=== PATIENT | female | born 1940 | race Caucasian/White ===

== ENCOUNTER → 2020-01-06 | Outpatient (CLI) | payer MEDICARE ==
[2020-01-06 16:42] LABS: MCH 29.8 pg (25.0-35.0); MCHC 31.7 g/dL (31.0-37.0); MCV 93.9 fL (80.0-100.0); Mean Platelet Volume 7.9; Platelet Count 255 k/uL (150-450); RBC 4.36 m/uL (3.80-5.40); RDW 13.7 % (11.5-15.5); WBC 9.1 k/uL (3.8-10.6)
[2020-01-06 16:50] LABS: Potassium 4.6 mmol/L (3.5-5.1)
== END | disposition home or self-care (01) ==
LOC: LABPAT 16:09
PROVIDERS: ATTEND Internal Medicine Interventional Cardiology
DX: Z01.818 Encounter for other preprocedural examination (principal); I25.10 Atherosclerotic heart disease of native coronary artery without angina pectoris
CPT/HCPCS: 80051; 82565; 84520; 85027

== ENCOUNTER → 2020-01-09 | Day surgery (SDC) | payer MEDICARE ==
[2020-01-07 15:28] VITALS: BMI 30.8
[~2020-01-09] MED LIST: ALPRAZolam 0.25 MG TAB PO PRN; ALPRAZolam 0.5 MG TAB PO PRN; ASPIRIN 325 MG TAB PO ONE; ATORVASTATIN 80 MG TAB PO ONE; IOPAMIDOL-370 100ML BTL INJ ONE; LIDOCAINE 1% INJ 10MG/ML (20 ML MDV) ONE; LIDOCAINE 1% INJ 10MG/ML (20 ML MDV) SQ ONE; MIDAZOLAM 2 MG/2 ML VIAL IV ONE; NITROGLYCERIN SL TABS 0.4 MG TAB SUBLINGUAL PRN; SODIUM CHLORIDE 0.9% 1,000 ML IV SCH; SODIUM CHLORIDE 0.9% 1,000 ML in EMPTY BAG 1 BAG IV ONE
[2020-01-09 08:39] VITALS: RESP 18; TEMP 98.1
[2020-01-09 08:40] LABS: Glucose,Whole Blood 94 mg/dL (75-99)
--- NOTE | 2020-01-09 10:31 | CC ---
CARDIAC CATHETERIZATION REPORT DATE OF SERVICE: 01/09/2020 PROCEDURE: Left heart catheterization and coronary angiography. PERFORMED BY: Dr. Mariluz Rodriguez. Moderate Conscious sedation time : 22 min. CLINICAL INFORMATION: Mrs. Lucinda Kim is a 79-year-old lady with a history of early dementia, type 2 diabetes, hypertension, hyperlipidemia, and noncritical carotid disease, who had a cardiac cath in 2018, which revealed noncritical CAD. She comes in with symptoms of discomfort in the chest and shortness of breath. In view of her ongoing symptoms, I recommended coronary angiography. I reviewed with her the risks, benefits, options and rationale. PROCEDURE NOTE: Under local anesthesia and strict aseptic precautions, a 6-Icelandic introducer was placed in the right femoral artery. Using a JL3.5 and JR4 catheters, I performed selective coronary angiography and the same right catheter was used to check LV pressure but LV gram was not performed. The sheath was taken out and Angio-Seal device used to secure hemostasis and she was sent to the room in a stable condition. The patient tolerated procedure well without complications. CARDIAC CATHETERIZATION FINDINGS: The left ventricular end-diastolic pressure was about 8-10 mmHg without any gradient across the aortic valve. CORONARY ANGIOGRAPHY FINDINGS: LEFT MAIN CORONARY ARTERY: Short, patent, disease-free vessel that bifurcates into LAD and circumflex. LEFT ANTERIOR DESCENDING CORONARY ARTERY: Good caliber vessel, extends along the anterior wall. In the midportion it gives off a septal branch, then there is a 35% to 40% narrowing after which a diagonal branch comes off and then LAD continues all the way. The distal 1/3 of the LAD has a mild diffuse disease. The diagonal is free of significant disease. Mid LAD has a 35% to 40% lesion unchanged from before. The LAD is relatively small caliber, small distribution vessel. LEFT POSTERIOR CIRCUMFLEX CORONARY ARTERY: This is a nondominant vessel but large in caliber and distribution. gives off 2 large obtuse marginal branches and then runs in the AV groove, supplies a sizable amount of myocardium. No significant disease. RIGHT CORONARY ARTERY: Large codominant vessel. Minor irregularities. No significant disease distally bifurcates into PDA and PLV, which are also free of significant disease. FINAL IMPRESSION: This patient has a 35% to 40% mid LAD disease unchanged from before. The distal 1/3 of the LAD has mild diffuse disease. RCA is dominant, disease-free and circumflex has no significant disease. No gradient across the aortic valve and filling pressures are normal. RECOMMENDATION: I am recommending continued medical therapy with risk factor modification. No intervention is necessary at this time. Findings were discussed with the patient and her . I will do an echocardiogram on her prior to discharge today. Discussed my thoughts in detail with the patient and I expect that she will be discharged later on today. I will see her in the office in about 1 week. MMVALENTINOL / ABIMBOLAN: [id number] / FRANCO
[2020-01-09 15:48] VITALS: PULSE 66
[2020-01-09 15:49] VITALS: BP 134/64
--- NOTE | 2020-01-10 19:18 | ECHOF ---
Referral Reason:evaluate LV function MEASUREMENTS -------- HEIGHT: 152.4 cm WEIGHT: 70.8 kg BP: 113/57 IVSd: 1.0 cm (0.6 - 1.1) LVIDd: 3.3 cm (3.9 - 5.3) LVPWd: 1.2 cm (0.6 - 1.1) EDV(Teich): 43 ml IVSs: 1.6 cm LVIDs: 2.0 cm LVPWs: 1.7 cm %IVS Thck: 62 % ESV(Teich): 12 ml EF(Teich): 71 % %FS: 39 % SV(Teich): 31 ml LA Diam: 3.0 cm (2.7 - 3.8) RVIDd: 3.7 cm (< 3.3) LALs A4C: 5.0 cm LAAs A4C: 16.5 cm LAESV A-L A4C: 47 ml LAESV MOD A4C: 44 ml Ao Diam: 2.6 cm (2.0 - 3.7) AV Cusp: 1.2 cm (1.5 - 2.6) EPSS: 0.3 cm MV E Vinay: 0.81 m/s MV DecT: 224 ms MV Dec Radford: 3.6 m/s MV A Vinay: 1.19 m/s MV E/A Ratio: 0.68 MV PHT: 65 ms LVOT Vmax: 1.15 m/s LVOT maxP.25 mmHg AV Vmax: 2.34 m/s AV maxP.99 mmHg AV Vmax: 2.43 m/s AV Vmean: 1.83 m/s AV maxP.71 mmHg AV meanP.41 mmHg AV Env.Ti: 331 ms AV VTI: 60.7 cm TR Vmax: 2.89 m/s TR maxP.36 mmHg RAP: 5.00 mmHg RVSP: 38.36 mmHg MV EF SLOPE: 22.24 mm/s (70 - 150) MV EXCURSION: 10.59 mm (> 18.000) FINDINGS -------- Sinus rhythm. This was a technically good study. The left ventricular size is normal. There is borderline concentric left ventricular hypertrophy. Overall left ventricular systolic function is normal with, an EF between 60 - 65 %. The right ventricle is mildly enlarged. The left atrial size is normal. The right atrium is normal in size. Interatrial and interventricular septum intact. There is mild aortic valve sclerosis. Trace to mild aortic regurgitation. There is mild aortic st enosis present. Peak/mean gradient across the Aortic Valve is 23.71mmHg / 14.41mmHg. Mild mitral regurgitation is present. Mild tricuspid regurgitation present. There is mild pulmonary hypertension. The right ventricular systolic pressure, as measured by Doppler, is 38.36mmHg. Trace/mild (physiologic) pulmonic regurgitation. The aortic root size is normal. Normal inferior vena cava with normal inspiratory collapse consistent with estimated right atrial pre ssure of 5 mmHg. There is no pericardial effusion. CONCLUSIONS -------- 1. The left ventricular size is normal. 2. There is borderline concentric left ventricular hypertrophy. 3. Overall left ventricular systolic function is normal with, an EF between 60 - 65 %. 4. The right ventricle is mildly enlarged. 5. There is mild aortic valve sclerosis. 6. Trace to mild aortic regurgitation. 7. There is mild aortic stenosis present. 8. Peak/mean gradient across the Aortic Valve is 23.71mmHg / 14.41mmHg. 9. Mild mitral regurgitation is present. 10. Mild tricuspid regurgitation present. 11. There is mild pulmonary hypertension. 12. The right ventricular systolic pressure, as measured by Doppler, is 38.36mmHg. 13. Trace/mild (physiologic) pulmonic regurgitation. 14. There is no pericardial effusion. OUTPATIENT FACILITY PHYSICAL THERAPIST: BRANDO Alexandre
== END ==
LOC: CATHCVL 07:59
PROVIDERS: ATTEND Internal Medicine Interventional Cardiology
DX: I25.110 Atherosclerotic heart disease of native coronary artery with unstable angina pectoris (principal); I08.3 Combined rheumatic disorders of mitral, aortic and tricuspid valves; I27.20 Pulmonary hypertension, unspecified; I10 Essential (primary) hypertension; I65.23 Occlusion and stenosis of bilateral carotid arteries; E78.00 Pure hypercholesterolemia, unspecified; F03.90 Unspecified dementia, unspecified severity, without behavioral disturbance, psychotic disturbance, mood disturbance, and anxiety; E11.9 Type 2 diabetes mellitus without complications; E78.5 Hyperlipidemia, unspecified; Z79.82 Long term (current) use of aspirin; Z79.899 Other long term (current) drug therapy; Z88.1 Allergy status to other antibiotic agents; Z91.011 Allergy to milk products; Z82.49 Family history of ischemic heart disease and other diseases of the circulatory system
CPT/HCPCS: 93306; 93458; C1769 ×3; C1760; C1894; J2250; J2001; Q9967

== ENCOUNTER → 2020-03-18 | Outpatient (CLI) | payer MEDICARE ==
--- NOTE | 2020-03-18 13:00 | MR ---
EXAMINATION TYPE: MR brain wo con DATE OF EXAM: 03/18/2020 12:35 PM COMPARISON: NONE HISTORY: Memory loss, seizure hx, CVA FINDINGS: The ventricles, basal cisterns and sulci overlying the cerebral convexities are moderately enlarged. There is evidence of mild periventricular white matter ischemic demyelination. Remote deep white matter insults are also noted. No acute edema is seen on diffusion weighted imaging. There is no evidence for midline shift or mass effect. Acute intracranial hemorrhage or extra-axial collection is not evident. The paranasal sinuses and mastoid air cells are well-aerated. IMPRESSION: Age-related atrophic and chronic small vessel ischemic change. No acute intracranial process at this time.
== END | disposition home or self-care (01) ==
LOC: RADMRIMAIN 11:40
PROVIDERS: ATTEND Psychiatry & Neurology Neurology
DX: G31.1 Senile degeneration of brain, not elsewhere classified (principal); I67.82 Cerebral ischemia
CPT/HCPCS: 70551

== ENCOUNTER 2022-07-05 14:24 | Observation (INO) | payer MEDICARE ==
[2022-07-05] MEDS ORDERED: IPRATROPIUM-ALBUTEROL 3 ML NEB INHALATION STA (15:13)
--- NOTE | 2022-07-05 15:15 | ED ---
General Adult HPI - General Chief complaint: Shortness of Breath Stated complaint: Cough and dyspnea Time Seen by Provider: 07/05/22 14:51 Source: patient, family, RN/MD (I did speak with Dr. Christie prior to patient arrival), RN notes reviewed Mode of arrival: wheelchair Limitations: no limitations - History of Present Illness Initial comments: Patient is a pleasant 81-year-old female presenting to the emergency Department with cough. Symptoms have been present for close to 2 weeks now. Cough has been nonproductive however patient does have chest congestion. Patient did have fever a few days ago. Patient does have somewhat short of breath and some tightness in her central chest. Patient has seen her doctor and follow-up again today with ER visit recommendation. Patient states her legs are slightly swollen today. No calf pain. Patient believes her legs are swollen from sitting up in the chair all night. - Related Data Home Medications Medication Instructions Recorded Confirmed Aspirin [Adult Low Dose Aspirin EC] 81 mg PO HS 01/07/20 09/06/21 Atorvastatin Calcium [Lipitor] 20 mg PO HS 01/07/20 09/06/21 Isosorbide Mononitrate ER [Imdur] 60 mg PO HS 01/07/20 09/06/21 Nitroglycerin Sl Tabs [Nitrostat] 0.4 mg SUBLINGUAL Q5M PRN 01/07/20 09/06/21 atenoloL [Tenormin] 50 mg PO DAILY 01/07/20 09/06/21 metFORMIN HCL [Glucophage] 500 mg PO DAILY 01/07/20 09/06/21 Losartan Potassium 100 mg PO DAILY 09/06/21 09/06/21 Pantoprazole Sodium 20 mg PO DAILY 09/06/21 09/06/21 hydroCHLOROthiazide [Hydrodiuril] 25 mg PO DAILY 09/06/21 09/06/21 Allergies Allergy/AdvReac Type Severity Reaction Status Date / Time adhesive tape Allergy Severe Burning, Verified 07/05/22 18:59 layers of skin peel off. alcohol Allergy Severe Dyspnea Verified 07/05/22 18:59 Review of Systems ROS Statement: Those systems with pertinent positive or pertinent negative responses have been documented in the HPI. ROS Other: All systems not noted in ROS Statement are negative. Constitutional: Reports: fever Eyes: Denies: eye pain ENT: Denies: ear pain Respiratory: Reports: as per HPI, cough, dyspnea Cardiovascular: Reports: as per HPI, chest pain Endocrine: Reports: fatigue Gastrointestinal: Denies: abdominal pain Genitourinary: Denies: dysuria Musculoskeletal: Denies: back pain Skin: Denies: rash Neurological: Denies: weakness Past Medical History Past Medical History: Diabetes Mellitus, Hyperlipidemia, Hypertension History of Any Multi-Drug Resistant Organisms: None Reported Past Surgical History: Appendectomy, Back Surgery, Heart Catheterization Additional Past Surgical History / Comment(s): cataract surgery, Past Anesthesia/Blood Transfusion Reactions: No Reported Reaction Past Psychological History: No Psychological Hx Reported Smoking Status: Never smoker Past Alcohol Use History: None Reported Past Drug Use History: None Reported - Past Family History family Family Medical History: No Reported History General Exam Limitations: no limitations General appearance: alert, in no apparent distress Head exam: Present: normocephalic Eye exam: Present: normal appearance Neck exam: Present: normal inspection Respiratory exam: Present: wheezes, rhonchi Cardiovascular Exam: Present: regular rate, normal rhythm GI/Abdominal exam: Present: soft. Absent: tenderness Extremities exam: Present: pedal edema (+1 bilateral). Absent: calf tenderness Neurological exam: Present: alert Psychiatric exam: Present: normal affect, normal mood Skin exam: Present: normal color Course Vital Signs 07/05/22 07/05/22 14:32 18:55 Temperature 97.6 F Pulse Rate 75 60 Respiratory 18 18 Rate Blood Pressure 166/74 124/80 O2 Sat by Pulse 97 98 Oximetry EKG Findings - EKG Results: EKG: interpreted by ERMYuriy ([facility]), sinus rhythm, normal axis, normal ST/T EKG shows: bradycardia Medical Decision Making - Medical Decision Making Was pt. sent in by a medical professional or institution (, PA, [employer] LEAD PSYCHOLOGIST, urgent care, hospital, or long-term...) When possible be specific @ -Patient was sent from Dr. Christie's office. Did you speak to anyone other than the patient for history (EMS, parent, family, police, friend...)? What history was obtained from this source @ -I did speak with Dr. Christie prior to arrival a patient who provided history as well. Did you review nursing and triage notes (agree or disagree)? Why? @ -I reviewed and agree with nursing and triage notes Were old charts reviewed (outside hosp., previous admission, EMS record, old EKG, old radiological studies, urgent care reports/EKG's, long-term records)? Report findings @ -No old charts were reviewed Differential Diagnosis (chest pain, altered mental status, abdominal pain women, abdominal pain men, vaginal bleeding, weakness, fever, dyspnea, syncope, headache, dizziness, GI bleed, back pain, seizure, CVA, palpatations, mental health)? @ -Differential Dyspnea: Coronary syndrome, arrhythmia, tamponade, asthma, COPD, pulmonary embolism, pneumonia, pneumothorax, pulmonary effusion, anaphylaxis, diabetic ketoacidosis, flailed chest, pulmonary contusion, diaphragmatic rupture, anemia, neuromuscular, this is not meant to be an all-inclusive list. EKG interpreted by me (3pts min.). @ -As above X-rays interpreted by me (1pt min.). @ -Chest x-ray shows fibrotic changes CT interpreted by me (1pt min.). @ -None done U/S interpreted by me (1pt. min.). @ -None done What testing was considered but not performed or refused? (CT, X-rays, U/S, labs)? Why? @ -None What meds were considered but not given or refused? Why? @ -None Did you discuss the management of the patient with other professionals (professionals i.e. , PA, M[employer] LEAD PSYCHOLOGIST, lab, RT, psych nurse, home health care social worker, packing checker, teacher, patrol community service officer, case management assistant)? Give summary @ -Case was earlier discussed with Dr. Christie. Case was later discussed with Dr. Lopez who will admit he does request pulmonary consult. Was smoking cessation discussed for >3mins.? @ -No Was critical care preformed (if so, how long)? @ -No Were there social determinants of health that impacted care today? How? (Homelessness, low income, unemployed, alcoholism, drug addiction, transportation, low edu. Level, literacy, decrease access to med. care, custodial, rehab)? @ -No Was there de-escalation of care discussed even if they declined (Discuss DNR or withdrawal of care, Hospice)? DNR status @ -No What co-morbidities impacted this encounter? (DM, HTN, Smoking, COPD, CAD, Cancer, CVA, ARF, Chemo, Hep., AIDS, mental health diagnosis, sleep apnea, morbid obesity)? @ -None Was patient admitted / discharged? Hospital course, mention meds given and route, prescriptions, significant lab abnormalities, going to OR and other pertinent info. @ -Patient does admit that she has had history of COVID-19 infection and had prolonged cough and problems for months following that. She does question if that could be related to the fibrosis. Patient is updated on results and plan. Undiagnosed new problem with uncertain prognosis? @ -No Drug Therapy requiring intensive monitoring for toxicity (Heparin, Nitro, Insulin, Cardizem)? @ -No Were any procedures done? @ -No Diagnosis/symptom? @ -Acute COPD Acute, or Chronic, or Acute on Chronic? @ -Acute Uncomplicated (without systemic symptoms) or Complicated (systemic symptoms)? @ -default Side effects of treatment? @ -No Exacerbation, Progression, or Severe Exacerbation? @ -No Poses a threat to life or bodily function? How? (Chest pain, [place], ME, pneumonia, PE, COPD, DKA, ARF, appy, cholecystitis, CVA, Diverticulitis, Homicidal, Up icidal, threat to staff... and all critical care pts) @ -No - Lab Data Result diagrams: 07/05/22 15:45 07/05/22 15:45 Lab Results 07/05/22 07/05/22 07/05/22 Range/Units 15:45 15:45 15:45 WBC 8.3 (3.8-10.6) k/uL RBC 4.61 (3.80-5.40) m/uL Hgb 13.6 (11.4-16.0) gm/dL Hct 40.6 (34.0-46.0) % MCV 88.1 (80.0-100.0) fL MCH 29.5 (25.0-35.0) pg MCHC 33.4 (31.0-37.0) g/dL RDW 12.9 (11.5-15.5) % Plt Count 287 (150-450) k/uL MPV 8.0 Neutrophils % 86 % Lymphocytes % 10 % Monocytes % 2 % Eosinophils % 0 % Basophils % 0 % Neutrophils # 7.2 (1.3-7.7) k/uL Lymphocytes # 0.8 L (1.0-4.8) k/uL Monocytes # 0.2 (0-1.0) k/uL Eosinophils # 0.0 (0-0.7) k/uL Basophils # 0.0 (0-0.2) k/uL PT 10.2 (9.0-12.0) sec INR 1.0 (<1.2) APTT 20.9 L (22.0-30.0) sec D-Dimer 0.65 H (<0.60) mg/L FEU Sodium (137-145) mmol/L Potassium (3.5-5.1) mmol/L Chloride (98-107) mmol/L Carbon Dioxide (22-30) mmol/L Anion Gap mmol/L BUN (7-17) mg/dL Creatinine (0.52-1.04) mg/dL Est GFR (CKD-EPI)AfAm (>60 ml/min/1.73 sqM) Est GFR (CKD-EPI)NonAf (>60 ml/min/1.73 sqM) Glucose (74-99) mg/dL Plasma Lactic Acid Damon (0.7-2.0) mmol/L Calcium (8.4-10.2) mg/dL Total Bilirubin (0.2-1.3) mg/dL AST (14-36) U/L ALT (4-34) U/L Alkaline Phosphatase (38-126) U/L Troponin I (0.000-0.034) ng/mL NT-Pro-B Natriuret Pep pg/mL Total Protein (6.3-8.2) g/dL Albumin (3.5-5.0) g/dL Influenza Type A (PCR) Not Detected (Not Detectd) Influenza Type B (PCR) Not Detected (Not Detectd) RSV (PCR) Not Detected (Not Detectd) SARS-CoV-2 (PCR) Not Detected (Not Detectd) 07/05/22 07/05/22 07/05/22 Range/Units 15:45 15:45 15:45 WBC (3.8-10.6) k/uL RBC (3.80-5.40) m/uL Hgb (11.4-16.0) gm/dL Hct (34.0-46.0) % MCV (80.0-100.0) fL MCH (25.0-35.0) pg MCHC (31.0-37.0) g/dL RDW (11.5-15.5) % Plt Count (150-450) k/uL MPV Neutrophils % % Lymphocytes % % Monocytes % % Eosinophils % % Basophils % % Neutrophils # (1.3-7.7) k/uL Lymphocytes # (1.0-4.8) k/uL Monocytes # (0-1.0) k/uL Eosinophils # (0-0.7) k/uL Basophils # (0-0.2) k/uL PT (9.0-12.0) sec INR (<1.2) APTT (22.0-30.0) sec D-Dimer (<0.60) mg/L FEU Sodium 137 (137-145) mmol/L Potassium 4.4 (3.5-5.1) mmol/L Chloride 99 (98-107) mmol/L Carbon Dioxide 30 (22-30) mmol/L Anion Gap 8 mmol/L BUN 21 H (7-17) mg/dL Creatinine 0.56 (0.52-1.04) mg/dL Est GFR (CKD-EPI)AfAm >90 (>60 ml/min/1.73 sqM) Est GFR (CKD-EPI)NonAf 88 (>60 ml/min/1.73 sqM) Glucose 125 H (74-99) mg/dL Plasma Lactic Acid Damon 1.7 (0.7-2.0) mmol/L Calcium 9.3 (8.4-10.2) mg/dL Total Bilirubin 0.8 (0.2-1.3) mg/dL AST 31 (14-36) U/L ALT 23 (4-34) U/L Alkaline Phosphatase 71 (38-126) U/L Troponin I <0.012 (0.000-0.034) ng/mL NT-Pro-B Natriuret Pep pg/mL Total Protein 7.3 (6.3-8.2) g/dL Albumin 4.1 (3.5-5.0) g/dL Influenza Type A (PCR) (Not Detectd) Influenza Type B (PCR) (Not Detectd) RSV (PCR) (Not Detectd) SARS-CoV-2 (PCR) (Not Detectd) 07/05/22 Range/Units 15:45 WBC (3.8-10.6) k/uL RBC (3.80-5.40) m/uL Hgb (11.4-16.0) gm/dL Hct (34.0-46.0) % MCV (80.0-100.0) fL MCH (25.0-35.0) pg MCHC (31.0-37.0) g/dL RDW (11.5-15.5) % Plt Count (150-450) k/uL MPV Neutrophils % % Lymphocytes % % Monocytes % % Eosinophils % % Basophils % % Neutrophils # (1.3-7.7) k/uL Lymphocytes # (1.0-4.8) k/uL Monocytes # (0-1.0) k/uL Eosinophils # (0-0.7) k/uL Basophils # (0-0.2) k/uL PT (9.0-12.0) sec INR (<1.2) APTT (22.0-30.0) sec D-Dimer (<0.60) mg/L FEU Sodium (137-145) mmol/L Potassium (3.5-5.1) mmol/L Chloride (98-107) mmol/L Carbon Dioxide (22-30) mmol/L Anion Gap mmol/L BUN (7-17) mg/dL Creatinine (0.52-1.04) mg/dL Est GFR (CKD-EPI)AfAm (>60 ml/min/1.73 sqM) Est GFR (CKD-EPI)NonAf (>60 ml/min/1.73 sqM) Glucose (74-99) mg/dL Plasma Lactic Acid Damon (0.7-2.0) mmol/L Calcium (8.4-10.2) mg/dL Total Bilirubin (0.2-1.3) mg/dL AST (14-36) U/L ALT (4-34) U/L Alkaline Phosphatase (38-126) U/L Troponin I (0.000-0.034) ng/mL NT-Pro-B Natriuret Pep 247 pg/mL Total Protein (6.3-8.2) g/dL Albumin (3.5-5.0) g/dL Influenza Type A (PCR) (Not Detectd) Influenza Type B (PCR) (Not Detectd) RSV (PCR) (Not Detectd) SARS-CoV-2 (PCR) (Not Detectd) Disposition Clinical Impression: Acute exacerbation of chronic obstructive pulmonary disease Disposition: ADMITTED IP TO THIS HOSP Is patient prescribed a controlled substance at d/c from ED?: No Referrals: Aldo Muñoz MD [Primary Care Provider] - 1-2 days Time of Disposition: 19:02
[2022-07-05 16:45] LABS: Basophils % (A) 0 %; Eosinophils % (A) 0 %; HCT 40.6 % (34.0-46.0); HGB 13.6 gm/dL (11.4-16.0); Lymphocytes # (A) 0.8 k/uL (1.0-4.8); Lymphocytes % (A) 10 %; MCH 29.5 pg (25.0-35.0); MCHC 33.4 g/dL (31.0-37.0); MCV 88.1 fL (80.0-100.0); Monocytes # (A) 0.2 k/uL (0-1.0); Monocytes % (A) 2 %; Neutrophils # (A) 7.2 k/uL (1.3-7.7); Neutrophils % (A) 86 %; Platelet Count 287 k/uL (150-450); RBC 4.61 m/uL (3.80-5.40); RDW 12.9 % (11.5-15.5); WBC 8.3 k/uL (3.8-10.6)
[2022-07-05 17:03] LABS: ALT 23 U/L (4-34); AST 31 U/L (14-36); African American GFR (CKD) >90 (>60 ml/min/1.73 sqM); Albumin 4.1 g/dL (3.5-5.0); Alkaline Phosphatase 71 U/L (38-126); Anion Gap 8 mmol/L; Blood Urea Nitrogen 21 mg/dL (7-17); Calcium 9.3 mg/dL (8.4-10.2); Carbon Dioxide 30 mmol/L (22-30); Chloride 99 mmol/L (98-107); Glucose 125 mg/dL (74-99); Non-African American GFR(CKD) 88 (>60 ml/min/1.73 sqM); Sodium 137 mmol/L (137-145); Total Bilirubin 0.8 mg/dL (0.2-1.3); Total Protein 7.3 g/dL (6.3-8.2)
--- NOTE | 2022-07-05 17:06 | XR ---
EXAMINATION TYPE: XR chest 2V DATE OF EXAM: 07/05/2022 COMPARISON: NONE HISTORY: Difficulty breathing TECHNIQUE: 2 views FINDINGS: There is no heart failure. There is some coarsening of the interstitial pulmonary markings. There are chest leads. Costophrenic angles are clear. There are no hilar masses. There are chest baylee ds. No pleural effusion. Thoracic spine is intact. IMPRESSION: Pulmonary interstitial fibrotic changes. Lung markings increased compared to old exam. No obvious heart failure.
[2022-07-05 17:07] LABS: Prothrombin Time 10.2 sec (9.0-12.0)
[2022-07-05 17:09] LABS: Partial Thromboplastin Time 20.9 sec (22.0-30.0)
[2022-07-05 17:17] LABS: Potassium 4.4 mmol/L (3.5-5.1)
[2022-07-05] MEDS ORDERED: NALOXONE 0.4 MG/ML 1 ML VIAL IVP PRN (19:02)
[2022-07-05] MEDS ORDERED: methylPREDNISolone SOD SUCCI 125 MG/2 ML VIAL IV STA (19:02)
[2022-07-05] MEDS ORDERED: ACETAMINOPHEN TAB 325 MG TAB PO PRN (19:02)
[2022-07-05] MEDS ORDERED: IPRATROPIUM-ALBUTEROL 3 ML NEB INHALATION PRN (19:02)
[2022-07-05] MEDS ORDERED: IPRATROPIUM-ALBUTEROL 3 ML NEB INHALATION SCH (20:00)
[2022-07-05] MEDS: AZITHROMYCIN 500 MG in SODIUM CHLORIDE 0.9% 250 ML IVPB SCH ×2 (20:32→20:43)
[2022-07-05] MEDS ORDERED: ALBUTEROL HFA INHALER INHALATION PRN (22:05)
[2022-07-05] MEDS ORDERED: hydrALAZINE HCL 20 MG/ML 1 ML VIAL IVP PRN (22:09)
[2022-07-05] MEDS ORDERED: PSEUDOEPHEDRINE 12HR 120 MG TABLET.ER PO SCH (22:30)
[2022-07-05] MEDS ORDERED: guaiFENesin 600 MG TABLET.ER PO SCH ×2 (22:30→22:51)
[2022-07-05] MEDS: ATORVASTATIN 20 MG TAB PO SCH (22:45)
[2022-07-05] MEDS: ISOSORBIDE MONONITRATE ER 30 MG TAB.ER.24H PO SCH (22:45)
[2022-07-05] MEDS: PSEUDOEPHEDRINE 12HR 120 MG TABLET.ER PO SCH (23:16)
[2022-07-05] MEDS: guaiFENesin 600 MG TABLET.ER PO SCH (23:16)
[2022-07-05] MEDS: methylPREDNISolone SOD SUCCI 125 MG/2 ML VIAL IV SCH (23:16)
[2022-07-06] MEDS ORDERED: IPRATROPIUM 0.5 MG/2.5 ML NEBU INHALATION PRN
[2022-07-06] MEDS ORDERED: ALBUTEROL NEBULIZED 2.5 MG/3 ML INHALATION PRN (00:01)
[2022-07-06] MEDS: methylPREDNISolone SOD SUCCI 125 MG/2 ML VIAL IV SCH ×3 (05:58→17:53)
[2022-07-06 06:02] LABS: Glucose,Whole Blood 147 mg/dL (70-110)
[2022-07-06] MEDS: INSULIN ASPART (NovoLOG) 100 UNIT/ML VIAL SQ SCH ×4 (06:04→21:30)
[2022-07-06] MEDS: ISOSORBIDE MONONITRATE ER 30 MG TAB.ER.24H PO SCH ×2 (06:42→17:53)
[2022-07-06] MEDS: IPRATROPIUM 0.5 MG/2.5 ML NEBU INHALATION SCH ×4 (08:11→20:59)
[2022-07-06] MEDS: ALBUTEROL NEBULIZED 2.5 MG/3 ML INHALATION SCH ×4 (08:11→21:00)
[2022-07-06] MEDS: PSEUDOEPHEDRINE 12HR 120 MG TABLET.ER PO SCH ×2 (08:46→22:13)
[2022-07-06] MEDS: guaiFENesin 600 MG TABLET.ER PO SCH ×2 (08:46→21:34)
[2022-07-06] MEDS: hydroCHLOROthiazide 25 MG TAB PO SCH (08:46)
[2022-07-06] MEDS: LOSARTAN 50 MG TAB PO SCH (08:46)
[2022-07-06] MEDS: METOPROLOL SUCCINATE (ER) 50 MG TAB.ER.24H PO SCH (08:46)
[2022-07-06] MEDS: PANTOPRAZOLE 40 MG TABLET PO SCH (08:46)
[2022-07-06] MEDS ORDERED: BUDESONIDE 0.5 MG/2 ML NEBU INHALATION SCH (09:28)
[2022-07-06] MEDS ORDERED: RX INFO: IV CONTRAST WAS GIVEN 1 EACH MISC MISCELLANE PRN (09:43)
[2022-07-06] MEDS: LACTOBACILLUS ACIDOPH & BULGAR 1 EACH PACKET PO SCH (11:17)
[2022-07-06 11:35] LABS: Glucose,Whole Blood 234 mg/dL (70-110)
--- NOTE | 2022-07-06 13:30 | P.HPIM ---
History of Present Illness H&P Date: 07/06/22 Chief Complaint: Worsening cough This is a pleasant 81-year-old female with past medical history of diabetes mellitus type 2, hyperlipidemia, hypertension, no prior nicotine dependence and multiple other medical issues presented to ER with worsening non-productive cough 2 weeks. Reports recently she had coughed up some clear sputum. Denies nausea vomiting. Reports an isolated fever of 100.1 at home. Outpatient, the patient received a couple doses of antibiotics, developed diarrhea and antibiotics discontinued and diarrhea subsided after initiating probiotic. Denies sore throat. Reports chest tightness with coughing, otherwise denies chest pain or palpitations. Positive headache. Conversing without shortness of breath. EKG reported sinus bradycardia. Troponin negative 1, proBNP 247. Chest x-ray per pulmonary interstitial fibrotic changes, lung markings increased compared to prior exam with no obvious heart failure. D-dimer elevated 0.65, Chest CT pending. Influenza type a, type B, RSV, lacy virus not detected.Afebrile, normal WBC, hematology and chemistry panels unremarkable. Lactic acid 1.7. Reports cough is more controlled, lessened since initiation of IV steroids. Review of Systems ROS Statement: Those systems with pertinent positive or pertinent negative responses have been documented in the HPI. ROS Other: All systems not noted in ROS Statement are negative. Past Medical History Past Medical History: Diabetes Mellitus, Hyperlipidemia, Hypertension History of Any Multi-Drug Resistant Organisms: None Reported Past Surgical History: Appendectomy, Back Surgery, Heart Catheterization Additional Past Surgical History / Comment(s): cataract surgery, Past Anesthesia/Blood Transfusion Reactions: No Reported Reaction Past Psychological History: No Psychological Hx Reported Smoking Status: Never smoker Past Alcohol Use History: None Reported Past Drug Use History: None Reported - Past Family History family Family Medical History: No Reported History Medications and Allergies Home Medications Medication Instructions Recorded Confirmed Type Aspirin [Adult Low Dose Aspirin EC] 81 mg PO W/SUPPER 01/07/20 07/05/22 History Atorvastatin Calcium [Lipitor] 20 mg PO W/SUPPER 01/07/20 07/05/22 History Isosorbide Mononitrate ER [Imdur] 30 mg PO BID-W/MEALS 01/07/20 07/05/22 History Nitroglycerin Sl Tabs [Nitrostat] 0.4 mg SUBLINGUAL Q5M PRN 01/07/20 07/05/22 History metFORMIN HCL [Glucophage] 500 mg PO W/SUPPER 01/07/20 07/05/22 History Pantoprazole Sodium 20 mg PO DAILY 09/06/21 07/05/22 History hydroCHLOROthiazide [Hydrodiuril] 25 mg PO DAILY 09/06/21 07/05/22 History Albuterol Inhaler [Ventolin Hfa 1 - 2 puff INHALATION RT-Q6H PRN 07/05/22 07/05/22 History Inhaler] Ergocalciferol (Vitamin D2) 1,250 mcg PO AGUILERA 07/05/22 07/05/22 History [Drisdol (50,000 Iu)] Guaifenesin/Pseudoephedrne HCl 1 tab PO BID 07/05/22 07/05/22 History [Mucinex D ER 1,200-120 mg Tab] Losartan [Cozaar] 50 mg PO DAILY 07/05/22 07/05/22 History Metoprolol Succinate (ER) [Toprol 50 mg PO DAILY 07/05/22 07/05/22 History Xl] Allergies Allergy/AdvReac Type Severity Reaction Status Date / Time adhesive tape Allergy Severe Burning, Verified 07/05/22 18:59 layers of skin peel off. alcohol Allergy Severe Dyspnea Verified 07/05/22 18:59 azithromycin AdvReac Unknown Verified 07/05/22 20:44 Childhood Physical Exam Vitals: Vital Signs Temp Pulse Pulse Resp BP BP Pulse Ox 07/06/22 09:02 18 07/06/22 08:37 78 07/06/22 08:12 76 96 07/06/22 07:25 98.3 F 103 H 18 163/84 96 07/06/22 01:45 97.6 F 79 20 168/84 97 07/05/22 22:43 155/72 07/05/22 21:32 98.1 F 84 22 181/77 97 07/05/22 20:20 90 158/60 98 07/05/22 20:10 82 158/60 97 07/05/22 20:00 91 179/68 97 07/05/22 19:59 83 07/05/22 19:50 89 179/68 100 07/05/22 19:45 80 07/05/22 19:40 74 179/68 95 07/05/22 19:30 73 179/68 96 07/05/22 19:20 62 179/68 98 07/05/22 19:10 69 179/68 98 07/05/22 19:00 70 162/70 97 07/05/22 18:55 60 18 124/80 98 07/05/22 18:50 71 162/70 98 07/05/22 18:40 80 162/70 94 L 07/05/22 18:30 71 162/70 98 07/05/22 18:20 67 162/70 97 07/05/22 18:10 73 162/70 98 07/05/22 18:00 64 151/68 98 07/05/22 17:50 67 151/68 98 07/05/22 17:40 151/68 07/05/22 17:30 71 151/68 07/05/22 17:20 97.6 F 68 151/68 07/05/22 17:10 73 16 98 07/05/22 17:00 71 18 98 07/05/22 16:50 68 16 98 07/05/22 16:40 196/85 07/05/22 16:31 74 18 98 07/05/22 14:32 97.6 F 75 18 166/74 97 Intake and Output 07/05/22 07/06/22 07/06/22 22:59 06:59 14:59 Other: Voiding Method Toilet # Voids 2 Weight 63.503 kg PHYSICAL EXAM: VITAL SIGNS: [As above] GENERAL: Sitting up in chair, no acute distress, conversing without shortness of breath HEENT: Conjunctivae normal. eyes normal. MMM. NECK: Supple, No JVD. No thyroid enlargement. No LNs CARDIOVASCULAR: S1, S2 regular. No murmur RESPIRATION: Breath sounds diminished in the bases. Expiratory wheezing, tightest on the right. ABDOMEN: Soft, nontender . No guarding. no masses palpable. No ascites, No hepatosplenomegaly.Bowel sounds heard. LEGS: No edema. no swelling PSYCHIATRY: Alert and oriented X3, mood and affect normal. NERVOUS SYSTEM: Cranial N 2-12 grossly normal. No focal deficits. Strength and sensation grossly intact. Skin: Warm and dry, no rash Results CBC & Chem 7: 07/05/22 15:45 07/05/22 15:45 Labs: Abnormal Lab Results - Last 24 Hours (Table) 07/05/22 07/05/22 07/05/22 Range/Units 15:45 15:45 15:45 Lymphocytes # 0.8 L (1.0-4.8) k/uL APTT 20.9 L (22.0-30.0) sec D-Dimer 0.65 H (<0.60) mg/L FEU BUN 21 H (7-17) mg/dL Glucose 125 H (74-99) mg/dL POC Glucose (mg/dL) (70-110) mg/dL 07/06/22 Range/Units 05:55 Lymphocytes # (1.0-4.8) k/uL APTT (22.0-30.0) sec D-Dimer (<0.60) mg/L FEU BUN (7-17) mg/dL Glucose (74-99) mg/dL POC Glucose (mg/dL) 147 H (70-110) mg/dL Thrombosis Risk Factor Assmnt - Choose All That Apply Any of the Below Risk Factors Present?: Yes Each Factor Represents 1 point: Abnormal pulmonary function (COPD) Each Risk Factor Represents 3 Points: Age 75 years or older Other congenital or acquired thrombophilia - If yes, enter type in comment: No Thrombosis Risk Factor Assessment Total Risk Factor Score: 4 Thrombosis Risk Factor Assessment Level: Moderate Risk Assessment and Plan Assessment: Ongoing cough 2 weeks accompanied by wheezing , Acute asthma exacerbation, chest x-ray reporting pulmonary interstitial fibrotic changes. Elevated d- dimer, CT pending. Diabetes mellitus2 CAD Hypertension Hyperlipidemia Plan: Continue on current medication regime ,monitoring and symptomatic treatment. Chest CT pending. Aggressive pulmonary toileting with nebulized bronchodilators, Pulmicort added to med regimen, IV steroids and IV antibiotics of ceftriaxone. Pulmonary consult in place, recommendations pending. The impression and plan of care has been dictated as directed. : I performed a history and examination of this patient, discussed the same with the dictator. I agree with the dictator's note ,documented as a scribe. Any additional findings or plans will be noted.
--- NOTE | 2022-07-06 14:03 | P.CNPUL ---
History of Present Illness Consult date: 07/06/22 Requesting physician: Aldo Muñoz Reason for consult: dyspnea, abnormal CXR/CT Chief complaint: Fatigue, shortness of breath History of present illness: This is a very pleasant 81-year-old female patient with a known history of angina, hyperlipidemia, diabetes mellitus, hypertension, lifelong nonsmoker. She developed CoVID in August 2021 and states she has had ongoing issues with fatigue since that time. Over the past 2 weeks she has developed what she felt was like a head cold and significant cough and congestion. She was treated with doxycycline and steroids in the outpatient setting was some improvement and then any recurrence recently and she presented here to the emergency room for the same. She states she did have a fever as well. Her has also had similar symptoms. White count 8.3. Hemoglobin 13.6. D-dimer 0.65. Sodium 137. Potassium 4.4. Bicarb 30. BUN 21. Creatinine 0.56. Glucose 125. ProBNP 247. Troponin negative 1. Influenza screen negative. RSV screen negative. COVID-19 screen negative. She is seen today in consultation on the regular medical floor. She is currently sitting up in a chair at the bedside. Awake and alert in no acute distress. Denies any worsening shortness of breath, cough or congestion. Feeling a bit better today compared to yesterday. She's been initiated on bronchodilators and IV Solu-Medrol. Review of Systems REVIEW OF SYSTEMS: CONSTITUTIONAL: Fatigue, fever. Denies any recent significant weight loss or weight gain. EYES: Denies change in vision. EARS, NOSE, MOUTH, THROAT: Denies headaches, denies sore throat. CARDIOVASCULAR: Denies chest pain, palpitations or syncopal episodes. RESPIRATORY: As above for shortness of breath, cough, congestion no hemoptysis. GASTROINTESTINAL: Denies change in appetite, denies abdominal pain GENITOURINARY: Denies hematuria, denies infections. MUSKULOSKELETAL: Denies pain, denies swelling. INTEGUMENTARY: Denies rash, denies eczema. NEUROLOGICAL: Denies recent memory loss, no recent seizure activity. PSYCHIATRIC: Denies anxiety, denies depression. HEMATOLOGIC/LYMPHATIC: Denies anemia, denies enlarged lymph nodes. Past Medical History Past Medical History: Diabetes Mellitus, Hyperlipidemia, Hypertension History of Any Multi-Drug Resistant Organisms: None Reported Past Surgical History: Appendectomy, Back Surgery, Heart Catheterization Additional Past Surgical History / Comment(s): cataract surgery, Past Anesthesia/Blood Transfusion Reactions: No Reported Reaction Past Psychological History: No Psychological Hx Reported Smoking Status: Never smoker Past Alcohol Use History: None Reported Past Drug Use History: None Reported - Past Family History family Family Medical History: No Reported History Medications and Allergies Home Medications Medication Instructions Recorded Confirmed Type Aspirin [Adult Low Dose Aspirin EC] 81 mg PO W/SUPPER 01/07/20 07/05/22 History Atorvastatin Calcium [Lipitor] 20 mg PO W/SUPPER 01/07/20 07/05/22 History Isosorbide Mononitrate ER [Imdur] 30 mg PO BID-W/MEALS 01/07/20 07/05/22 History Nitroglycerin Sl Tabs [Nitrostat] 0.4 mg SUBLINGUAL Q5M PRN 01/07/20 07/05/22 History metFORMIN HCL [Glucophage] 500 mg PO W/SUPPER 01/07/20 07/05/22 History Pantoprazole Sodium 20 mg PO DAILY 09/06/21 07/05/22 History hydroCHLOROthiazide [Hydrodiuril] 25 mg PO DAILY 09/06/21 07/05/22 History Albuterol Inhaler [Ventolin Hfa 1 - 2 puff INHALATION RT-Q6H PRN 07/05/22 07/05/22 History Inhaler] Ergocalciferol (Vitamin D2) 1,250 mcg PO AGUILERA 07/05/22 07/05/22 History [Drisdol (50,000 Iu)] Guaifenesin/Pseudoephedrne HCl 1 tab PO BID 07/05/22 07/05/22 History [Mucinex D ER 1,200-120 mg Tab] Losartan [Cozaar] 50 mg PO DAILY 07/05/22 07/05/22 History Metoprolol Succinate (ER) [Toprol 50 mg PO DAILY 07/05/22 07/05/22 History Xl] Allergies Allergy/AdvReac Type Severity Reaction Status Date / Time adhesive tape Allergy Severe Burning, Verified 07/05/22 18:59 layers of skin peel off. alcohol Allergy Severe Dyspnea Verified 07/05/22 18:59 azithromycin AdvReac Unknown Verified 07/05/22 20:44 Childhood Physical Exam Vitals: Vital Signs Temp Pulse Pulse Resp BP BP Pulse Ox 07/06/22 13:11 97.9 F 99 16 135/67 96 07/06/22 11:23 74 07/06/22 11:09 72 07/06/22 09:02 18 07/06/22 08:37 78 07/06/22 08:12 76 96 07/06/22 07:25 98.3 F 103 H 18 163/84 96 07/06/22 01:45 97.6 F 79 20 168/84 97 07/05/22 22:43 155/72 07/05/22 21:32 98.1 F 84 22 181/77 97 07/05/22 20:20 90 158/60 98 07/05/22 20:10 82 158/60 97 07/05/22 20:00 91 179/68 97 07/05/22 19:59 83 07/05/22 19:50 89 179/68 100 07/05/22 19:45 80 07/05/22 19:40 74 179/68 95 07/05/22 19:30 73 179/68 96 07/05/22 19:20 62 179/68 98 07/05/22 19:10 69 179/68 98 07/05/22 19:00 70 162/70 97 07/05/22 18:55 60 18 124/80 98 07/05/22 18:50 71 162/70 98 07/05/22 18:40 80 162/70 94 L 07/05/22 18:30 71 162/70 98 07/05/22 18:20 67 162/70 97 07/05/22 18:10 73 162/70 98 07/05/22 18:00 64 151/68 98 07/05/22 17:50 67 151/68 98 07/05/22 17:40 151/68 07/05/22 17:30 71 151/68 07/05/22 17:20 97.6 F 68 151/68 07/05/22 17:10 73 16 98 07/05/22 17:00 71 18 98 07/05/22 16:50 68 16 98 07/05/22 16:40 196/85 07/05/22 16:31 74 18 98 07/05/22 14:32 97.6 F 75 18 166/74 97 Intake and Output 07/05/22 07/06/22 07/06/22 22:59 06:59 14:59 Other: Voiding Method Toilet # Voids 2 Weight 63.503 kg GENERAL EXAM: Alert, active, pleasant 81-year-old female, on room air, comfortable in no apparent distress. HEAD: Normocephalic. EYES: Normal reaction of pupils, equal size. NOSE: Clear with pink turbinates. THROAT: No erythema or exudates. NECK: No masses, no JVD. CHEST: No chest wall deformity. LUNGS: Equal air entry with crackles in the bilateral bases. CVS: S1 and S2 normal with no audible murmur, regular rhythm. ABDOMEN: No hepatosplenomegaly, normal bowel sounds, no guarding or rigidity. SPINE: No scoliosis or deformity SKIN: No rashes CENTRAL NERVOUS SYSTEM: No focal deficits, tone is normal in all 4 extremities. EXTREMITIES: There is no peripheral edema. No clubbing, no cyanosis. Peripheral pulses are intact. Results - Laboratory Findings CBC and BMP: 07/05/22 15:45 07/05/22 15:45 PT/INR, D-dimer PT 10.2 sec (9.0-12.0) 07/05/22 15:45 INR 1.0 (<1.2) 07/05/22 15:45 D-Dimer 0.65 mg/L FEU (<0.60) H 07/05/22 15:45 Abnormal lab findings: Abnormal Labs 07/05/22 07/05/22 07/05/22 15:45 15:45 15:45 Lymphocytes # 0.8 L APTT 20.9 L D-Dimer 0.65 H BUN 21 H Glucose 125 H POC Glucose (mg/dL) 07/06/22 07/06/22 05:55 11:34 Lymphocytes # APTT D-Dimer BUN Glucose POC Glucose (mg/dL) 147 H 234 H - Diagnostic Findings Chest x-ray: image reviewed Assessment and Plan Assessment: Dyspnea with persistent cough secondary to suspected pulmonary fibrosis/interstitial lung disease possibly related to previous CoVID19 infection that she had in August 2021. CT scan from 09/06/2021 did reveal evidence of interstitial lung disease possible NSIP. No films were available prior to that time. Cannot rule out underlying infection. Currently on ceftriaxone. Pro-calcitonin pending. Lifelong nonsmoker History of hypertension Hyperlipidemia History of angina Gastric esophageal reflux disease Plan: The patient was seen and evaluated Chest x-ray, CT of the chest, medications and labs reviewed Suspect interstitial lung disease, continue steroids Procalcitonin pending, continue antibiotics for now We will continue to follow and make further recommendations based on her clinical status I have personally seen and examined the patient, performed the documentation and the assessment and plan as written. Number of minutes spent on the visit: 20.
--- NOTE | 2022-07-06 15:10 | CT ---
EXAMINATION TYPE: CT chest wo con DATE OF EXAM: 07/06/2022 COMPARISON: Chest x-ray from yesterday. CTA chest September 06, 2021 HISTORY: Follow up COPD, post COVID CT DLP: 749.5 mGycm. Automated Exposure Control for Dose Reduction was Utilized. TECHNIQUE: CT scan of the thorax is performed without IV contrast. High-resolution protocol with 1 m m sequences obtained in 10 mm intervals in supine and prone technique using full inspiration and expi ration. FINDINGS: LUNGS: There is peripheral reticulation and fibrotic change seen bilaterally and fairly diffusely wit h most prominent findings in the bilateral lower lungs.. There is additional mild to moderate linear scarring in the lower lungs with mild traction bronchiectasis. Some honeycombing in the bases is pres ent. No pleural effusion or pneumothorax is seen bilaterally. No concerning pulmonary masses. MEDIASTINUM: Lack of IV contrast and technique are noted to limit evaluation for mediastinal and pia cially hilar adenopathy. There are no definitive new greater than 1 cm mediastinal lymph nodes. No cardiomegaly or pericardial effusion is seen. Prominent right and left pulmonary arteries raise sreedhar rn for underlying pulmonary artery hypertension. OTHER: Hyperdense 1.0 cm round lesion from the left kidney axial image 26 series 501 could reflect sm all hemorrhagic cyst. There is scoliosis of the thoracolumbar spine redemonstrated. IMPRESSION: There is fairly moderate diffuse parenchymal fibrosis greatest in the lower lungs as deta iled above.
[2022-07-06 15:40] LABS: Glucose,Whole Blood 139 mg/dL (70-110)
[2022-07-06] MEDS: INSULIN DETEMIR (LEVEMIR) 100 UNIT/ML SYR SQ SCH (16:40)
[2022-07-06] MEDS ORDERED: ASPIRIN 81 MG PO SCH (17:30)
[2022-07-06] MEDS: ATORVASTATIN 20 MG TAB PO SCH (17:53)
[2022-07-06 20:56] LABS: Glucose,Whole Blood 238 mg/dL (70-110)
[2022-07-06] MEDS: BUDESONIDE 1 MG/2 ML NEBU INHALATION SCH (21:00)
[2022-07-06] MEDS ORDERED: traZODone HCL 50 MG TAB PO SCH (21:00)
[2022-07-07] MEDS: methylPREDNISolone SOD SUCCI 125 MG/2 ML VIAL IV SCH ×2 (00:26→06:41)
[2022-07-07] MEDS: INSULIN DETEMIR (LEVEMIR) 100 UNIT/ML SYR SQ SCH (06:37)
[2022-07-07] MEDS: INSULIN ASPART (NovoLOG) 100 UNIT/ML VIAL SQ SCH (06:38)
[2022-07-07 07:01] LABS: Glucose,Whole Blood 134 mg/dL (70-110)
[2022-07-07 08:21] VITALS: BP 156/77; RESP 18; TEMP 98.1
[2022-07-07] MEDS: METOPROLOL SUCCINATE (ER) 50 MG TAB.ER.24H PO SCH (08:39)
[2022-07-07] MEDS: hydroCHLOROthiazide 25 MG TAB PO SCH (08:39)
[2022-07-07] MEDS: ISOSORBIDE MONONITRATE ER 30 MG TAB.ER.24H PO SCH (08:39)
[2022-07-07] MEDS: LOSARTAN 50 MG TAB PO SCH (08:39)
[2022-07-07] MEDS: guaiFENesin 600 MG TABLET.ER PO SCH (08:39)
[2022-07-07] MEDS: PANTOPRAZOLE 40 MG TABLET PO SCH (08:39)
[2022-07-07] MEDS: LACTOBACILLUS ACIDOPH & BULGAR 1 EACH PACKET PO SCH (08:41)
[2022-07-07] MEDS: IPRATROPIUM 0.5 MG/2.5 ML NEBU INHALATION SCH ×2 (08:53→12:52)
[2022-07-07] MEDS: ALBUTEROL NEBULIZED 2.5 MG/3 ML INHALATION SCH ×2 (08:54→12:51)
[2022-07-07] MEDS: BUDESONIDE 1 MG/2 ML NEBU INHALATION SCH (08:54)
[2022-07-07 09:10] VITALS: PULSE 68
[2022-07-07] MEDS ORDERED: IPRATROPIUM-ALBUTEROL 3 ML NEB INHALATION PRN (10:16)
[2022-07-07] MEDS: PSEUDOEPHEDRINE 12HR 120 MG TABLET.ER PO SCH (11:31)
[2022-07-07 11:43] LABS: Glucose,Whole Blood 127 mg/dL (70-110)
--- NOTE | 2022-07-07 12:19 | P.PN ---
Subjective Progress Note Date: 07/07/22 This is a very pleasant 81-year-old female patient with a known history of angina, hyperlipidemia, diabetes mellitus, hypertension, lifelong nonsmoker. She developed CoVID in August 2021 and states she has had ongoing issues with fatigue since that time. Over the past 2 weeks she has developed what she felt was like a head cold and significant cough and congestion. She was treated with doxycycline and steroids in the outpatient setting was some improvement and then any recurrence recently and she presented here to the emergency room for the same. She states she did have a fever as well. Her has also had similar symptoms. White count 8.3. Hemoglobin 13.6. D-dimer 0.65. Sodium 137. Potassium 4.4. Bicarb 30. BUN 21. Creatinine 0.56. Glucose 125. ProBNP 247. Troponin negative 1. Influenza screen negative. RSV screen negative. COVID-19 screen negative. She is seen today in consultation on the regular medical floor. She is currently sitting up in a chair at the bedside. Awake and alert in no acute distress. Denies any worsening shortness of breath, cough or congestion. Feeling a bit better today compared to yesterday. She's been initiated on bronchodilators and IV Solu-Medrol. The patient is seen today 07/07/2022 in follow-up on the regular medical floor. Currently sitting up in a chair at the bedside. Awake and alert in no acute distress. and daughter are present. No worsening shortness of breath, cough or congestion. Continues to maintain good O2 saturations in the 90s on room air. Computed tomography scan of the chest revealed fairly moderate diffuse parenchymal fibrosis greater in the lower lungs. There is mild traction bronchiectasis. Mild to moderate linear scarring. Some honeycombing in the bases. No concern for pulmonary masses. No pneumothorax. No pleural effusion. Pro-calcitonin negative at 0.04. Objective - Vital Signs Vital signs: Vital Signs Temp 98.1 F 07/07/22 07:08 Pulse 68 07/07/22 09:10 Resp 18 07/07/22 07:08 BP 156/77 07/07/22 07:08 Pulse Ox 97 07/07/22 10:00 FiO2 Intake & Output 07/06/22 07/07/22 07/07/22 18:59 06:59 18:59 Other: Voiding Method Toilet # Voids 2 1 - Exam GENERAL EXAM: Alert, pleasant 81-year-old female, up in a chair at the bedside, on room air, comfortable in no apparent distress. HEAD: Normocephalic. EYES: Normal reaction of pupils, equal size. NOSE: Clear with pink turbinates. THROAT: No erythema or exudates. NECK: No masses, no JVD. CHEST: No chest wall deformity. LUNGS: Equal air entry with coarse crackles in the posterior bases. CVS: S1 and S2 normal with no audible murmur, regular rhythm. ABDOMEN: No hepatosplenomegaly, normal bowel sounds, no guarding or rigidity. SPINE: No scoliosis or deformity SKIN: No rashes CENTRAL NERVOUS SYSTEM: No focal deficits, tone is normal in all 4 extremities. EXTREMITIES: There is no peripheral edema. No clubbing, no cyanosis. Peripheral pulses are intact. - Labs CBC & Chem 7: 07/05/22 15:45 07/05/22 15:45 Labs: Abnormal Lab Results - Last 24 Hours (Table) 07/06/22 07/06/22 07/07/22 Range/Units 15:39 20:46 06:24 POC Glucose (mg/dL) 139 H 238 H 134 H (70-110) mg/dL 07/07/22 Range/Units 11:37 POC Glucose (mg/dL) 127 H (70-110) mg/dL Assessment and Plan Assessment: Dyspnea with persistent cough secondary to suspected pulmonary fibrosis/interstitial lung disease possibly related to previous CoVID19 infection that she had in August 2021. CT scan from 09/06/2021 did reveal evidence of interstitial lung disease possible NSIP. No films were available prior to that time. Computed tomography scan from yesterday 07/06/2022 did reveal peripheral reticulation and fibrotic changes seen bilaterally and fairly diffuse mostly in the bilateral lower lobes. Additional mild to moderate linear scarring. Mild traction bronchiectasis. Some honeycombing. No acute pulmonary process. No masses. Pro-calcitonin negative at 0.04. Ceftriaxone discontinued. Lifelong nonsmoker History of hypertension Hyperlipidemia History of angina Gastric esophageal reflux disease Plan: The patient was seen and evaluated CT of the chest, medications and labs reviewed Films reviewed with the patient and her family at the bedside Detailed explanation regarding interstitial lung disease provided Cleared for discharge from the pulmonary standpoint Complete a prednisone taper starting at 40 mg daily 4 days Procalcitonin normal, discontinue antibiotics Follow-up in our office in 1 week We'll perform full pulmonary function testing then I have personally seen and examined the patient, performed the documentation and the assessment and plan as written. Number of minutes spent on the visit: 10.
[2022-07-07] MEDS ORDERED: IPRATROPIUM-ALBUTEROL 3 ML NEB INHALATION SCH (20:00)
--- NOTE | 2022-07-08 08:38 | CDI ---
Documentation Clarification Form Date: 07/08/22 From: Laurel Miller Admit Date: 07/05/2022 7:03:00 PM Patient Name: Lucinda Burrows Visit Number: [id number] Discharge Date: 07/07/2022 12:52:00 PM ATTENTION: The Clinical Documentation Specialists (CDI) and [facility] Coding Staff appreciate your assistance in clarifying documentation. Please respond to the clarification below the line at the bottom and electronically sign. The CDI & [facility] Coding staff will review the response and follow-up if needed. Please note: Queries are made part of the Legal Health Record. If you have any questions, please contact the author of this message via ITS. Dr. Aldo Muñoz, There is documentation of suspected pulmonary fibrosis/nonspecific interstitial pneumonia in Dr. Cuellar 07/07 progress note. Additional clarification is requested. History/Risk Factors: T2DM, HLD, HTN, no nicotine dependence Clinical Indicators: Per 07/07 PN, "Dyspnea with persistent cough secondary to suspected pulmonary fibrosis/interstitial lung disease possibly related to previous COVID19 infection that she had in August 2021. CT scan from 09/06/2021 did reveal evidence of interstitial lung disease possible NSIP." Treatment: CT CHESTWO, IV Solu-Medrol, IV Azithromycin, IV Rocephin, discharged on Prednisone taper, Can you please clarify [fill in the question]? [ ] NSIP Nonspecific Interstitial Pneumonia d/t long COVID [ X ] Pulmonary fibrosis d/t long COVID [ ] Other, please specify [ ] Unable to determine MTDD
[2022-07-08] MEDS ORDERED: predniSONE 20 MG TAB PO SCH (09:00)
== END 2022-07-07 12:52 | disposition home or self-care (01) ==
LOC: EC 14:24 → INTOOBSV 19:03 → 4SSUR 19:03 → UNDODISIN 07-07 12:52
PROVIDERS: ADMIT Family Medicine; ATTEND Family Medicine
DX: J84.10 Pulmonary fibrosis, unspecified (principal); U09.9 Post COVID-19 condition, unspecified; J44.1 Chronic obstructive pulmonary disease with (acute) exacerbation; E11.9 Type 2 diabetes mellitus without complications; E78.5 Hyperlipidemia, unspecified; I10 Essential (primary) hypertension; R00.1 Bradycardia, unspecified; K21.9 Gastro-esophageal reflux disease without esophagitis; N28.9 Disorder of kidney and ureter, unspecified; Z79.82 Long term (current) use of aspirin; Z79.899 Other long term (current) drug therapy; Z79.84 Long term (current) use of oral hypoglycemic drugs; Z98.49 Cataract extraction status, unspecified eye; Z20.822 Contact with and (suspected) exposure to COVID-19
CPT/HCPCS: 96376 ×3; 96366 ×2; 96365 ×2; 96375; 99285; 36415; 94640 ×3; 94760; 93005; 36410; 76937; 85379; 83880; 80053; 83605; 84484; 85025; 85610; 85730; 84145; 87636; 71046; 71250; G0378 ×3; J2930 ×3; J0696 ×3

== ENCOUNTER → 2023-07-04 | Outpatient (CLI) | payer MEDICARE ==
--- NOTE | 2023-07-04 15:25 | CT ---
EXAMINATION TYPE: CT chest wo con DATE OF EXAM: 07/04/2023 COMPARISON: 07/06/2022. HISTORY: Pulmonary fibrosis. CT DLP: 236 mGycm. Automated Exposure Control for Dose Reduction was Utilized. TECHNIQUE: CT scan of the thorax is performed without IV contrast. FINDINGS: LUNGS: There are interstitial changes seen throughout the lungs bilaterally with some reticular changes and mild honeycombing suspected in the [place] post[place] to lower lungs which is likely slightly more prominent than the previous examination. There is no axillary, mediastinal or hilar lymphadenopathy. There is moderate vascular calcification seen throughout the thoracic aorta without evidence of aneur ysmal dilation. IMPRESSION: Pulmonary fibrotic changes which have slightly progressed since the previous examination. Follow-up recommendations for incidental pulmonary nodules are per [employer] or [employer].
== END | disposition home or self-care (01) ==
LOC: RADCTMAIN 11:01
PROVIDERS: ATTEND Internal Medicine
DX: J84.10 Pulmonary fibrosis, unspecified (principal); J84.9 Interstitial pulmonary disease, unspecified
CPT/HCPCS: 71250